=== PATIENT | male | born 1985 | race African-American/Black ===

== ENCOUNTER 2017-05-23 09:58 | Emergency (ER) | payer MEDICAID ==
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
[~2017-05-23 09:58] MED LIST: ACYCLOVIR400 MG PO; AMOXICILLIN500 M1 PO; BENADRYL25 MG PO; CELEXA10 MG PO; CLARITIN10 M3 PO; CORTISONE14 GM TP; EXCEDRIN MIGRA1 EACH PO; FLAGYL PO; FLEXERIL10 M1 PO; FLONASE 0.05% N16 G1; INDOMETHACIN25 MG PO; NO MEDICATIONS; PRINIVIL10 MG PO; SUDAFED PO; UNKNOWN BP MED; VIBRAMYCIN100 M1 PO; VOLTAREN75 MG PO
== END 2017-05-23 11:33 | disposition home or self-care (01) ==
LOC: SED 09:58
DX: S50.12XA Contusion of left forearm, initial encounter (principal); S50.11XA Contusion of right forearm, initial encounter; Z23 Encounter for immunization; Y00.XXXA Assault by blunt object, initial encounter; Y92.410 Unspecified street and highway as the place of occurrence of the external cause
CPT/HCPCS: 73090; 90471; 90715; 99283